=== PATIENT | male | born 2000 | race Two or more races ===

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

== ENCOUNTER → 2020-05-26 | Outpatient (CLI) | payer OTHER ==
[~2020-05-26] MED LIST: ALBU2.5V14 NEB; PRED20TA PO
--- NOTE | 2020-05-26 18:36 | RAD ---
Left shoulder 3 views. HISTORY: Pain left shoulder 3 views were taken the left shoulder. There is not evidence of a fracture or dislocation or acute oss eous abnormality. IMPRESSION: 1. Negative left shoulder. Electronically signed by: Ishan Rome MD (05/26/2020 6:33 PM) [facility]
== END ==
LOC: PMG 18:08
PROVIDERS: ATTEND Nurse Practitioner Family
DX: M25.512 Pain in left shoulder (principal)
CPT/HCPCS: 73030